=== PATIENT | female | born 1960 | race Caucasian/White ===

== ENCOUNTER 2018-05-08 08:43 | Emergency (ER) | payer BC ==
[2018-05-08 08:51] VITALS: TEMP 98.1
--- NOTE | 2018-05-08 10:09 | US ---
EXAMINATION TYPE: US venous doppler duplex LE LT DATE OF EXAM: 05/08/2018 9:56 AM COMPARISON: NONE CLINICAL HISTORY: Pain posterior knee, r/o blood clot, bakers cyst?. Patient taking Eliquis x 1 year for AFIB; left ankle swelling x 1 day SIDE PERFORMED: Left TECHNIQUE: The lower extremity deep venous system is examined utilizing real time linear array sonog lyly with graded compression, doppler sonography and color-flow sonography. VESSELS IMAGED: Common Femoral Vein Deep Femoral Vein Greater Saphenous Vein * Femoral Vein Popliteal Vein Small Saphenous Vein * Proximal Calf Veins (* superficial vessels) Left Leg: Negative for DVT; negative for popliteal fossa cyst IMPRESSION: No evidence for DVT
--- NOTE | 2018-05-08 11:08 | ED ---
General Adult HPI - General Chief complaint: Extremity Problem,Nontraumatic Stated complaint: poss blood clot in leg Time Seen by Provider: 05/08/18 08:53 Source: patient, RN notes reviewed Mode of arrival: ambulatory Limitations: no limitations - History of Present Illness Initial comments: 58-year-old female with a past medical history of atrial fibrillation, asthma, rheumatoid arthritis presents to the emergency department for a chief complaint of posterior left knee pain 3 months. Patient states she has been evaluated by both her guide tour as well as to orthopedic specialists. She has been doing physical therapy. Patient states she has an ultrasound scheduled for next week however started to have swelling in the left ankle so presented to the emergency department to have ultrasound done today. Patient states pain is worse when she straightens her leg. She states her guide tour does not believe this is related to rheumatoid arthritis. Patient denies fevers or chills. Patient denies difficulty ambulating. Patient denies any increased warmth noted in the knee.Patient has no other complaints at this time including shortness of breath, chest pain, abdominal pain, nausea or vomiting, headache, or visual changes. - Related Data Home Medications Medication Instructions Recorded Confirmed ALPRAZolam [Xanax] 0.25 mg PO DAILY PRN 05/08/18 05/08/18 Apixaban [Eliquis] 5 mg PO BID 05/08/18 05/08/18 Calcium Carbonate [Calcium] 600 mg PO DAILY 05/08/18 05/08/18 Escitalopram [Lexapro] 10 mg PO DAILY 05/08/18 05/08/18 Fluticasone/Salmeterol [Advair 1 puff INHALATION RT-BID 05/08/18 05/08/18 250-50 Diskus] Levothyroxine Sodium [Tirosint] 100 mcg PO DAILY 05/08/18 05/08/18 Loteprednol Etabonate [Lotemax] 1 drop BOTH EYES BID 05/08/18 05/08/18 Magnesium Oxide [Parker] 500 mg PO DAILY 05/08/18 05/08/18 Metoprolol Succinate (ER) [Toprol 50 mg PO DAILY 05/08/18 05/08/18 Xl] Nabumetone 500 mg PO BID 05/08/18 05/08/18 Neuroignite 1 tab PO DAILY 05/08/18 05/08/18 Hedley-3 Fatty Acids/Fish Oil 1 cap PO DAILY 05/08/18 05/08/18 [Hedley-3 Fish Oil 1,200 mg Sfgl] Propafenone [Rythmol] 150 mg PO BID PRN 05/08/18 05/08/18 Thiamine [Vitamin B-1] 100 mg PO DAILY 05/08/18 05/08/18 Triflex 1 tab PO DAILY 05/08/18 05/08/18 Vit C/E/Zn/Coppr/Lutein/Zeaxan 1 cap PO DAILY 05/08/18 05/08/18 [Preservision Areds 2 Softgel] Allergies Allergy/AdvReac Type Severity Reaction Status Date / Time Sulfa (Sulfonamide Allergy Unknown Verified 05/08/18 09:37 Antibiotics) Review of Systems ROS Statement: Those systems with pertinent positive or pertinent negative responses have been documented in the HPI. ROS Other: All systems not noted in ROS Statement are negative. Past Medical History Past Medical History: Atrial Fibrillation, Asthma, Rheumatoid Arthritis (RA), Thyroid Disorder Additional Past Medical History / Comment(s): RICHARDSON'S PALSY History of Any Multi-Drug Resistant Organisms: None Reported Past Surgical History: Orthopedic Surgery, Tonsillectomy Additional Past Surgical History / Comment(s): KNEE SURGERY Past Psychological History: No Psychological Hx Reported Smoking Status: Never smoker Past Alcohol Use History: None Reported Past Drug Use History: None Reported General Exam Limitations: no limitations General appearance: alert, in no apparent distress Head exam: Present: atraumatic, normocephalic, normal inspection Eye exam: Present: normal appearance, PERRL, EOMI. Absent: scleral icterus, conjunctival injection, periorbital swelling ENT exam: Present: normal exam, mucous membranes moist Neck exam: Present: normal inspection, full ROM. Absent: tenderness, meningismus, lymphadenopathy Respiratory exam: Present: normal lung sounds bilaterally. Absent: respiratory distress, wheezes, rales, rhonchi, stridor Cardiovascular Exam: Present: regular rate, normal rhythm, normal heart sounds. Absent: systolic murmur, diastolic murmur, rubs, gallop, clicks Extremities exam: Present: full ROM (Patient has full range of motion in the left knee), tenderness (Minimal tenderness in the calf and posterior left knee), normal capillary refill (Capillary refill less than 2 seconds and DP pulse 2+ and equal in lower extremities bilaterally), pedal edema (Patient does have some minimal nonpitting edema noted in the left lower leg.), calf tenderness (Minimal left calf tenderness without Homans sign present.). Absent: joint swelling Neurological exam: Present: alert, oriented X3, CN II-XII intact Psychiatric exam: Present: normal affect, normal mood Course Vital Signs 05/08/18 08:48 Temperature 98.1 F Pulse Rate 67 Respiratory 16 Rate Blood Pressure 146/80 O2 Sat by Pulse 99 Oximetry Medical Decision Making - Medical Decision Making 58-year-old female presents to the emergency department for a chief complaint of left leg swelling. She has had pain behind the left knee for about 3 months and has been seen by multiple specialists. She is still following with orthopedics and her guide tour. Patient developed swelling yesterday and wanted to make sure she did not have a blood clot. Swelling is minimal in the left leg. Patient has full range motion of the left knee, no ear pain present. Patient is ambulatory. Vitals are stable. Ultrasound is negative for blood clot or cyst. At this time is felt patient can follow up outpatient. Patient is in agreement with this. She will follow up with both her orthopedic doctor for possible MRI as well as her guide tour. She will return here if she has any worsening symptoms. Disposition Clinical Impression: Posterior left knee pain Disposition: HOME SELF-CARE Condition: Good Instructions (If sedation given, give patient instructions): Knee Pain (ED) Additional Instructions: Please take Motrin and Tylenol for pain. Please follow-up with both orthopedic physician as well as your guide tour. Keep the leg elevated to help with swelling when at rest. Return here for any worsening symptoms. Is patient prescribed a controlled substance at d/c from ED?: No Referrals: Juhi Clinton MD [Primary Care Provider] - 1-2 days Raimundo Flores MD [STAFF PHYSICIAN] - 1-2 days Time of Disposition: 11:07
[2018-05-08 11:36] VITALS: BP 144/67; PULSE 72; RESP 18
== END 2018-05-08 11:36 | disposition home or self-care (01) ==
LOC: EC 08:43
DX: M25.562 Pain in left knee (principal); R60.0 Localized edema; I48.91 Unspecified atrial fibrillation; J45.909 Unspecified asthma, uncomplicated; E07.9 Disorder of thyroid, unspecified; M06.9 Rheumatoid arthritis, unspecified; Z88.2 Allergy status to sulfonamides; Z79.01 Long term (current) use of anticoagulants; Z79.1 Long term (current) use of non-steroidal anti-inflammatories (NSAID); Z79.51 Long term (current) use of inhaled steroids; Z79.52 Long term (current) use of systemic steroids; Z79.890 Hormone replacement therapy; Z79.899 Other long term (current) drug therapy; Z98.890 Other specified postprocedural states
CPT/HCPCS: 99283

== ENCOUNTER → 2019-01-08 | Outpatient (CLI) | payer BC ==
--- NOTE | 2019-01-11 16:45 | BD ---
EXAMINATION TYPE: Axial Bone Density DATE OF EXAM: 01/08/2019 COMPARISON: NONE CLINICAL HISTORY: Height: 5 FT 9 IN Weight: 180 FRAX RISK QUESTIONS: Family History (Parent hip fracture): YES History of Fracture in Adulthood: YES Secondary Osteoporosis: Rheumatoid Arthritis: YES RISK FACTORS HISTORY OF: Family History of Osteoporosis: YES Active: YES Postmenopausal woman: AGE 48 MEDICATIONS: Thyroid Medications: YES Which medication: TRINOSINT How Lon YEARS Additional Medications: ADVAIR, TRINOSINT, BLOOD THINNER Additional History: EXAM MEASUREMENTS: Bone mineral densitometry was performed using the new test company System. Bone mineral density as measured about the Lumbar spine is: ----- L1-L4(G/cm2): 1.950 T Score Values are as follows: ----- L2: 4.7 ----- L3: 7.6 ----- L4: 8.5 ----- L1-L4: 6.4 Bone mineral density has: INCREASED 8.0% SINCE STUDY 2011 Bone mineral density about the R hip (g/cm2): 1.278 Bone mineral density about the L hip (g/cm2): 1.307 T Score values are as follows: -----R Neck: 1.7 -----L Neck: 1.9 -----R Total: 2.3 -----L Total: 2.1 Bone mineral density has: INCREASED 2.1 %SINCE STUDY 2011 IMPRESSION: Normal (Values between +1 and -1 indicate normal bone mass). Consider repeating this study in 5 year s or sooner if there is some new clinical indication. NOTE: T-SCORE=SD OF THE YOUNG ADULT MEAN.
== END | disposition home or self-care (01) ==
LOC: RADBDWWP 15:42
PROVIDERS: ATTEND Internal Medicine Endocrinology, Diabetes & Metabolism
DX: E21.0 Primary hyperparathyroidism (principal)
CPT/HCPCS: 77080

== ENCOUNTER → 2019-02-09 | Outpatient (CLI) | payer BC ==
--- NOTE | 2019-02-12 10:46 | MM ---
Reason for exam: screening (asymptomatic). Last mammogram was performed 3 years and 1 month ago. History: Patient is postmenopausal and is nulliparous. Physical Findings: A clinical breast exam by your physician is recommended on an annual basis and results should be correlated with mammographic findings. MG 3D Screening Mammo W/Cad Bilateral CC and MLO view(s) were taken. Prior study comparison: January 24, 2016, bilateral MG screening mammo w CAD. November 22, 2014, bilateral MG screening mammo w CAD. The breast tissue is heterogeneously dense. This may lower the sensitivity of mammography. No significant changes when compared with prior studies. ASSESSMENT: Negative, BI-RAD 1 RECOMMENDATION: Routine screening mammogram of both breasts in 1 year. Patient should continue monthly self breast exams. A negative report should not preclude additional follow up of suspicious palpable abnormalities.
== END | disposition home or self-care (01) ==
LOC: RADMAMWWP 10:42
PROVIDERS: ATTEND Internal Medicine
DX: Z12.31 Encounter for screening mammogram for malignant neoplasm of breast (principal)
CPT/HCPCS: 77063; 77067

== ENCOUNTER → 2020-12-06 | Outpatient (CLI) | payer BC ==
--- NOTE | 2020-12-07 09:43 | MM ---
Reason for exam: screening (asymptomatic). Last mammogram was performed 1 year and 10 months ago. History: Patient is postmenopausal and is nulliparous. Physical Findings: A clinical breast exam by your physician is recommended on an annual basis and results should be correlated with mammographic findings. MG 3D Screening Mammo W/Cad Bilateral CC and MLO view(s) were taken. Prior study comparison: February 09, 2019, bilateral MG 3d screening mammo w/cad. January 24, 2016, bilateral MG screening mammo w CAD. The breast tissue is heterogeneously dense. This may lower the sensitivity of mammography. Focal asymmetry inner central left breast. This finding is changed when compared with previous exams. ASSESSMENT: Incomplete: need additional imaging evaluation, BI-RAD 0 RECOMMENDATION: Special view mammogram of the left breast. If lesion persists on supplemental views, image directed ultrasound is recommended. [facility] will attempt to contact patient to return for supplemental views and ultrasound if indicated.
== END | disposition home or self-care (01) ==
LOC: RADMAMWWP 12:02
PROVIDERS: ATTEND Internal Medicine
DX: Z12.31 Encounter for screening mammogram for malignant neoplasm of breast (principal)
CPT/HCPCS: 77063; 77067

== ENCOUNTER → 2020-12-14 | Outpatient (CLI) | payer BC ==
--- NOTE | 2020-12-14 14:50 | MM ---
Reason for exam: additional evaluation requested from abnormal screening. Last mammogram was performed less than 1 month ago. History: Patient is postmenopausal and is nulliparous. Physical Findings: Nurse did not find any significant physical abnormalities on exam. MG 3D Work Up W/Cad LT Spot compression CC, spot compression MLO, and LM view(s) were taken of the left breast. Prior study comparison: December 06, 2020, bilateral MG 3d screening mammo w/cad. February 09, 2019, bilateral MG 3d screening mammo w/cad. There is no discrete abnormality including area of concern. These results were verbally communicated with the patient and result sheet given to the patient on 12/14/20. ASSESSMENT: Negative, BI-RAD 1 RECOMMENDATION: Return to routine screening mammogram schedule for both breasts.
== END | disposition home or self-care (01) ==
LOC: RADMAMWWP 13:39
PROVIDERS: ATTEND Internal Medicine
DX: R92.8 Other abnormal and inconclusive findings on diagnostic imaging of breast (principal)
CPT/HCPCS: 77061; 77065

== ENCOUNTER → 2021-04-14 | Outpatient (CLI) | payer BC ==
[2021-04-14 17:17] LABS: ALT 28 U/L (8-44); AST 26 U/L (13-35); Chol/HDL Ratio 5.49 Ratio; Creatine Kinase 74 U/L (26-186); LDL Cholesterol,Calculated 158.5 mg/dL (0.0-131.0)
== END | disposition home or self-care (01) ==
LOC: LABWHC1 11:31
PROVIDERS: ATTEND Internal Medicine Cardiovascular Disease
DX: E78.5 Hyperlipidemia, unspecified (principal)
CPT/HCPCS: 36415; 80061; 82550; 84450; 84460

== ENCOUNTER → 2022-09-18 | Outpatient (CLI) | payer BC ==
--- NOTE | 2022-09-19 22:49 | MM ---
Reason for Exam: Screening (asymptomatic). Last mammogram was performed 1 year(s) and 10 month(s) ago. Patient History: Menarche at age 12. Patient has no children. Postmenopausal. Risk Values: Felicia 5 year model risk: 1.6%. NCI Lifetime model risk: 6.6%. Prior Study Comparison: 02/09/2019 Bilateral Screening Mammogram, [facility]. 12/06/2020 Bilateral Screening Mammogram, [facility]. 12/14/2020 Left Diagnostic Mammogram, [facility]. Tissue Density: The breast tissue is heterogeneously dense. This may lower the sensitivity of mammography. Findings: Analyzed By CAD. There is no suspicious group of microcalcifications or new suspicious mass in either breast. Overall Assessment: Negative, BI-RAD 1 Management: Screening Mammogram of both breasts in 1 year. . Patient should continue monthly self-breast exams. A clinical breast exam by your physician is recommended on an annual basis. This exam should not preclude additional follow-up of suspicious palpable abnormalities. Note on Felicia scores and lifetime risk: 1. A Felicia score greater than 3% is considered moderate risk. If this is the case, consider specialist referral to assess eligibility for a risk reducing agent. 2. If overall lifetime risk for the development of breast cancer is 20% or higher, the patient may qualify for future screening with alternating mammogram and breast MRI. Electronically signed and approved by: Gabbi Raymnod M.D. Radiologist
== END | disposition home or self-care (01) ==
LOC: RADMAMWWP 15:26
PROVIDERS: ATTEND Internal Medicine
DX: Z12.31 Encounter for screening mammogram for malignant neoplasm of breast (principal); Z78.0 Asymptomatic menopausal state
CPT/HCPCS: 77067

== ENCOUNTER → 2022-11-06 | Outpatient (CLI) | payer BC ==
--- NOTE | 2022-11-06 19:15 | BD ---
EXAMINATION TYPE: Axial Bone Density DATE OF EXAM: 11/06/2022 CLINICAL HISTORY: 62 years old Female. ICD-10 CODE: E21.0 PRIMARY HYPERPARATHYROIDISM Height: 5 ft 9 in Weight: 164 FRAX RISK QUESTIONS: Alcohol (3 or more units per day): no Family History (Parent hip fracture): yes Glucocorticoids (More than 3mos): no (Ex: prednisone, prednisolone, methylprednisolone, dexamethasone, and hydrocortisone). History of Fracture in Adulthood: no Secondary Osteoporosis: 1. Type 1 Diabetes: no 2. Hyperthyroidism: no 3. Menopause before 45: yes 4. Malnutrition: no 5. Chronic liver disease: no Rheumatoid Arthritis: yes Current Tobacco Use: no RISK FACTORS HISTORY OF: Surgery to Spine/Hip(right/left)/Wrist (right/left): no Family History of Osteoporosis: yes Active: yes Diet low in dairy products/other sources of calcium: no Postmenopausal woman: yes Take estrogen and/or progesterone medications: no Lost more than 2 inches in height since high school: no Frequent falls: no Poor Health: good Hyperparathyroidism: no Adrenal Insufficiency: no MEDICATIONS: Thyroid Medications: yes Which medication: tirosint How Lon years Additional Medications: Tirosint, eliquis, Advair, Lexapro, metoprolol, Rosuvastatin,, Plaquenil, Za naflex, Additional History: EXAM MEASUREMENTS: Bone mineral densitometry was performed using the [employer] System. Bone mineral density as measured about the Lumbar spine is: ----- L1-L4(G/cm2): 1.998 T Score Values are as follows: ----- L1: 4.9 ----- L2: 6.0 ----- L3: 7.9 ----- L4: 8.0 ----- L1-L4: 6.8 Z Score Values are as follows: ----- L1: 6.2 ----- L2: 7.3 ----- L3: 9.2 ----- L4: 9.2 ----- L1-L4: 8.1 Bone mineral density has: decreased -3.1 % since study of: 2019 Bone mineral density about the R hip (g/cm2): 1.246 Bone mineral density about the L hip (g/cm2): 1.295 T Score values are as follows: -----R Neck: 1.5 -----L Neck: 1.9 -----R Total: 2.4 -----L Total: 1.9 Z Score values are as follows: -----R Neck: 2.7 -----L Neck: 3.1 -----R Total: 3.3 -----L Total: 2.9 Bone mineral density has: decreased -0.5 % since study of: 2019 FRAX%s: The graph provided illustrates a 6.7 % chance for a major osteoporotic fx and a 0.1 % chance for the hips probability for fx in 10 years time. IMPRESSION: Normal (Values between +1 and -1 indicate normal bone mass). Consider repeating this study in 5 year s or sooner if there is some new clinical indication. NOTE: T-SCORE=SD OF THE YOUNG ADULT MEAN.
== END | disposition home or self-care (01) ==
LOC: RADBDWWP 13:08
PROVIDERS: ATTEND Internal Medicine Endocrinology, Diabetes & Metabolism
DX: E21.0 Primary hyperparathyroidism (principal); Z78.0 Asymptomatic menopausal state
CPT/HCPCS: 77080